=== PATIENT | female | born 1955 | race Caucasian/White ===

== ENCOUNTER 2016-08-03 23:04 | Emergency (ER) | payer OTHER ==
[~2016-08-03] VITALS: Ht 152.4 cm; Wt 66.0 kg
[2016-08-03] MEDS ORDERED: METF500T4 PO (23:13)
[2016-08-03] MEDS ORDERED: RANI150T7 PO (23:13)
[2016-08-03] MEDS ORDERED: ASPI-556 PO (23:13)
[2016-08-03] MEDS ORDERED: FLUO-191 PO (23:13)
[2016-08-03] MEDS ORDERED: LISI-661 PO (23:13)
[2016-08-03] MEDS ORDERED: SIMV40 PO (23:13)
[2016-08-03 23:17] LABS: GLUCOSE COMMENT 1 Doctor Notified; GLUCOSE,POINT OF CARE 86 MG/DL (70-110)
[2016-08-03 23:55] VITALS: BP 133/81
== END 2016-08-04 00:07 | disposition home or self-care (01) ==
LOC: EMS 23:06
DX: L50.9 Urticaria, unspecified (principal); E11.9 Type 2 diabetes mellitus without complications; E78.00 Pure hypercholesterolemia, unspecified; I10 Essential (primary) hypertension; Z79.82 Long term (current) use of aspirin
CPT/HCPCS: 82962; 99282